=== PATIENT | male | born 1980 ===

== ENCOUNTER 2017-06-09 07:42 | Inpatient (IN) | payer OTHER ==
[2017-06-09 08:09] VITALS: BMI 26.3
[2017-06-09 08:39] LABS: BASO # 0.1 K/uL (0.0-0.2); BASO % 0.9 % (0.0-2.0); EOS # 0.3 K/uL (0.0-0.7); EOS % 4.2 % (0.0-4.0); HEMOGLOBIN 15.7 g/dL (12.0-18.0); LYMPH # 1.4 K/uL (1.0-4.3); LYMPH % 23.1 % (20.0-40.0); MEAN CELL VOLUME 89.6 fL (80.0-94.0); MEAN CORPUSCULAR HEMOGLOBIN 31.5 pg (27.0-31.0); MEAN CORPUSCULAR HGB CONC 35.2 g/dL (33.0-37.0); MEAN PLATELET VOLUME 7.4 fL (7.2-11.7); MONO # 0.6 K/uL (0.0-0.8); MONO % 9.1 % (0.0-10.0); NEUT # 3.8 K/uL (1.8-7.0); NEUT % 62.7 % (50.0-75.0); RBC 4.99 Mil/uL (4.40-5.90); RED CELL DISTRIBUTION WIDTH 13.3 % (11.5-14.5); WHITE BLOOD COUNT 6.1 K/uL (4.8-10.8)
[2017-06-09 08:44] LABS: URINE BILIRUBIN NEGATIVE (NEGATIVE); URINE BLOOD NEGATIVE (NEGATIVE); URINE CLARITY Clear (Clear); URINE COLOR Straw (YELLOW); URINE GLUCOSE (UA) NORMAL (Normal); URINE LEUKOCYTE ESTERASE NEG Leu/uL (Negative); URINE NITRATE NEGATIVE (NEGATIVE); URINE PROTEIN NEGATIVE (NEGATIVE); URINE UROBILINOGEN NORMAL mg/dL (0.2-1.0)
[2017-06-09 08:53] LABS: ALB/GLOB RATIO 1.3 (1.0-2.1); ALBUMIN 4.1 g/dL (3.5-5.0); ALT/SGPT 23 U/L (21-72); AST/SGOT 19 U/L (17-59); BLOOD UREA NITROGEN 13 mg/dL (9-20); CALCIUM 9.8 mg/dl (8.6-10.4); GFR AFRICAN-AMERICAN > 60; GFR NON-AFRICAN AMERICAN > 60
[2017-06-09 08:59] LABS: BARBITURATES, UR NEGATIVE (NEGATIVE); OPIATES, UR NEGATIVE (NEGATIVE); PHENCYCLIDINE, UR NEGATIVE (NEGATIVE)
[2017-06-09 09:25] LABS: BENZODIAZEPINES, UR POSITIVE (NEGATIVE)
--- NOTE | 2017-06-09 09:41 | C.PDOC ---
History Of Present Illness 37 year old male presents to the emergency department with a complaint of having anxiety after having problems at home. Patient has a history of anxiety and takes Xanax and Bupropion. Reports he was able to sleep but as soon as he woke up he felt anxious. Denies suicidal/homicidal ideation and visual or auditory hallucinations. Time Seen by Provider: 06/09/17 08:00 Chief Complaint (Nursing): Anxiety History Per: Patient History/Exam Limitations: no limitations Past Medical History Reviewed: Historical Data, Nursing Documentation, Vital Signs Vital Signs: Last Vital Signs Temp 98.2 F 06/09/17 10:10 Pulse 68 06/09/17 10:10 Resp 20 06/09/17 10:10 BP 122/76 06/09/17 10:10 Pulse Ox 100 06/09/17 10:52 - Medical History PMH: Anxiety Denies: Diabetes, Hepatitis, HIV, HTN, Seizures, Sexually Transmitted Disease Family History: States: No Known Family Hx - Social History Hx Alcohol Use: No Hx Substance Use: No - Immunization History Hx Tetanus Toxoid Vaccination: No Hx Influenza Vaccination: No Hx Pneumococcal Vaccination: No Review Of Systems Except As Marked, All Systems Reviewed And Found Negative. (As per HPI, otherwise negative) Psych: Positive for: Anxiety. Negative for: Suicidal ideation (homicidal ideation), Other (Auditory or visual hallucinations) Physical Exam - Physical Exam Appears: Well, Non-toxic, Toxic Skin: Normal Color, Warm Head: Normacephalic Nose: Normal Tongue: Normal Appearing Lips: Normal Appearing Teeth: Normal Dentition Gingiva: Normal Appearing Throat: Normal Neck: Normal ROM Lymphatic: Normal Exam Cardiovascular: Rhythm Regular, No Murmur Respiratory: Normal Breath Sounds, No Decreased Breath Sounds, No Accessory Muscle Use Gastrointestinal/Abdominal: Normal Exam, Soft, No Tenderness Extremity: Normal ROM, No Pedal Edema Neurological/Psych: Oriented x3 Gait: Steady ED Course And Treatment - Laboratory Results Result Diagrams: 06/09/17 08:30 06/09/17 08:30 O2 Sat by Pulse Oximetry: 100 (RA) Pulse Ox Interpretation: Normal Medical Decision Making Medical Decision Making: Time: 822 --Alohol Serum --CMP --Drug Screen, Urine --CBC w/ diff --Urinalysis --Crisis evaluation as ordered Time: 919 --Patient was seen and medically cleared for crisis evaluation/admission. Time: 938 --Admit to hospital routine: as inpatient in psychiatry for anxiety under the care of Dr. Amara Browning MD Disposition - Disposition Disposition: HOSPITALIZED Disposition Time: :40 Condition: STABLE - Clinical Impression Clinical Impression: Anxiety - Scribe Statement edwin terri Decision To Admit - Pt Status Changed To: Hospital Disposition Of: Inpatient - Admit Certification Admit to Inpatient:: After my assessment, the patient will require hospitalization for at least two midnights. This is because of the severity of symptoms shown, intensity of services needed, and/or the medical risk in this patient being treated as an outpatient. - InPatient: Physician Admission Certification: I certify that this patient requires 2 or more midnights of care for the following reason:: pt will need more than 2 days of hospitalization - . Bed Request Type: Psychiatry Patient Diagnosis: Anxiety
--- NOTE | 2017-06-09 10:49 | PCM.BM ---
<Kelle Martinez - Last Filed: 06/09/17 10:49> Treatment Plan Problems - Problems identified on initial assessmt Anxiety Date Initiated: 06/09/17 Time Initiated: 10:49 Assessment reference: NA Status: Active Treatment assets and liabiliti Patient Assests: adapts well, cooperative Patient Liabilities: substance abuse - Milieu Protocol Maintain good personal hygiene: every shift Encourage regular showers, every shift Remind patient to perform daily oral care, every shift Assist patient to perform ADL's Maintain personal safety: every shift Educate patient to report safety concerns to staff, every shift Monitor environment for contraband/sharps Medication safety: Monitor for expected outcome, potential side effects: every shift, Assess barriers to learning: every shift, Assess readiness for medication education: every shift <Aster Garcia - Last Filed: 06/11/17 10:43> Family Contact Family involvement: Family/SO is involved Family contact: Patient declines to allow family contact at present - Goals for Treatment Patient goals for treatment: "I need help with my anxiety." Discharge/Continuing Care - Education Needs Education Needs: Patient Medication, Patient Coping Skills - Discharge Discharge Criteria: Tolerates medication w/o severe side effects, Reduction of target symptoms Discharge to:: Home, With Family - Treatment Team Participation Discussed with Family/SO: No Was Patient/Family/SO present at Treatment Team Meeting: Yes <Amara Browning - Last Filed: 06/11/17 10:44> - Diagnosis (1) Bipolar disorder Status: Acute Interventions: 06/11/17 10:44 * Assess/adjust medications daily and /or as needed * See patient on an individual basis 7x/week to assess level of manic behaviors and stability * Discuss risks, benefits, side effects and alternatives of medications *
--- NOTE | 2017-06-09 23:48 | PCM.PSYCH ---
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 Patient denies any past history of any inpatient psychiatric hospitalization and denies any history of follow-up with any psychiatrist. Patient reports that since few weeks he is feeling very high anxiety. He also reports panic attacks, with heavy breathing, palpitations and gastric symptoms. He reports that he believes that his head is running faster. He reports racing of thoughts, flight of ideas and poor concentration. 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 He also reports poor sleep. However he denies any suicidal ideation or homicidal ideation. He denies any auditory or visual hallucinations or any psychotic symptoms. He denies any drugs or any substance abuse. PMH: None reported Current Medications: Active Medications Generic Name Dose Route Start Last Admin Trade Name Freq PRN Reason Stop Dose Admin Hydroxyzine HCl 25 mg 06/09/17 14:04 06/09/17 17:45 Atarax PO 25 mg Q4 PRN Administration Agitation Lorazepam 1 mg 06/09/17 18:06 Ativan PO Q6 PRN severe anxiety Trazodone HCl 50 mg 06/09/17 18:06 Desyrel PO HS PRN Insomnia Past Psychiatric History - Past Psychiatric History Previous Treatment History: None Pertinent Medical Hx (Current Medical&Sleep Prob, Allergies): Allergies Allergy/AdvReac Type Severity Reaction Status Date / Time No Known Allergies Allergy Verified 06/09/17 07:47 Alprazolam 0.5 mg PO BID 06/09/17 buPROPion [Bupropion HCl] 100 mg PO BID 06/09/17 Review of Systems - Review of Systems All systems: reviewed and no additional remarkable complaints except - Psychiatric Psychiatric: Anxiety, Irritability. absent: Suicidal Ideation Mental Status Examination - Personal Presentation Personal Presentation: Looks stated age - Affect Affect: Constricted - Motor Activity Motor Activity: Calm - Reliability in Providing Information Reliability in Providing Information: Fair - Speech Speech: Organized - Mood Mood: Anxious - Formal Thought Process Formal Thought Process: Flight of ideas, Circumstantial - Obsessions/Compulsions Obsessions: No Compulsions: No - Cognitive Functions Orientation: Person, Place, Situation, Time Sensorium: Alert Attention/Concentration: Attentive Abstract Thinking: [place] Estimate of Intelligence: Below average Judgement: Imparied, as evidence by: Poor judgement, Intact, as evidence by: Insight regarding need for hospitalization - Risk Risk: Diminished functioning - Strength & Assets Inventory Strength & Assets Inventory: Family support DSM 5 DX - DSM 5 DSM 5 Diagnosis: Bipolar disorder manic severe without psychotic features Generalized anxiety disorder - Recommended/Plan of Treatment Treatment Recommendations and Plan of Treatment: Bipolar disorder manic severe without psychotic features Generalized anxiety disorder CBT Psychoeducation Supportive therapy, group therapy, individual therapy Wellbutrin 100 mg by mouth daily Trazodone 50 mg by mouth daily at bedtime Hydroxyzine 25 mg by mouth every 6 hours when necessary
[2017-06-10 05:54] VITALS: O2SAT 99
--- NOTE | 2017-06-11 10:18 | PCM.PYCHPN ---
Psychiatric Progress Note - Psychiatric Progress Note Patient seen today, length of contact: 15 min Patient Chief Complaint: I'm still feeling anxious.' Problems Identified/Issues Discussed: Patient seen and evaluated, chart reviewed and discussed with the nurse. Patient reports irritability and agitation. He remained isolated and withdrawn. He still reports racing thoughts and flight of ideas. However he reports that he was able to sleep last night. He denies any auditory or visual hallucinations. He is taking medications and denies any side effects. Symptoms are improving but she needs more time for stabilization. Supportive therapy and psychoeducation were given Medication Change: Yes (Start Neurontin, DC Wellbutrin) Medical Record Reviewed: Yes Mental Status Examination - Cognitive Function Orientation: Person, Place, Situation, Time Memory: Intact Attention: WNL Concentration: Poor Association: WNL Fund of Knowledge: Poor - Mood Mood: Anxious - Affect Affect: Constricted - Speech Speech: Appropriate - Formal Thought Process Formal Thought Process: Flight of ideas - Suicidal Ideation Suicidal Ideation: No - Homicidal Ideation Homicidal Ideation: No Goal/Treatment Plan - Goal/Treatment Plan Need for Continued Stay: Severe depression anxiety, Severe functional impairment Progress Toward Problem(s) and Goals/Treatment Plan: Bipolar disorder manic severe without psychotic features Generalized anxiety disorder CBT Psychoeducation Supportive therapy, group therapy, individual therapy d/c Wellbutrin 100 mg by mouth daily Neurontin 100 mg by mouth 3 times a day Trazodone 50 mg by mouth daily at bedtime Hydroxyzine 25 mg by mouth every 6 hours when necessary - Smoking Cessation Smoking Cessation Initiated: No
--- NOTE | 2017-06-11 10:43 | PCM.PYCHPN ---
Psychiatric Progress Note - Psychiatric Progress Note Patient seen today, length of contact: 15 min Patient Chief Complaint: My head is still pacing.' Problems Identified/Issues Discussed: Patient seen and evaluated, chart reviewed and discussed with the nurse. Patient still reports racing thoughts and flight of ideas. He reports some improvement in the irritability and agitation. He remained isolated and withdrawn. He also reports improvement in his sleep. He denies any auditory or visual hallucinations. He also denies any suicidal ideation or any homicidal ideation. He is taking medications and denies any side effects. Symptoms are improving but she needs more time for stabilization. Supportive therapy and psychoeducation were given Medication Change: Yes (Start Depakote) Medical Record Reviewed: Yes Mental Status Examination - Cognitive Function Orientation: Person, Place, Situation, Time Memory: Intact Attention: WNL Concentration: Poor Association: WNL Fund of Knowledge: Poor - Mood Mood: Anxious - Affect Affect: Constricted - Speech Speech: Appropriate, Soft - Formal Thought Process Formal Thought Process: Flight of ideas - Suicidal Ideation Suicidal Ideation: No - Homicidal Ideation Homicidal Ideation: No Goal/Treatment Plan - Goal/Treatment Plan Need for Continued Stay: Severe depression anxiety, Severe functional impairment Progress Toward Problem(s) and Goals/Treatment Plan: Bipolar disorder manic severe without psychotic features Generalized anxiety disorder CBT Psychoeducation Supportive therapy, group therapy, individual therapy Depakote 250 mg by mouth twice a day Neurontin 100 mg by mouth 3 times a day Trazodone 50 mg by mouth daily at bedtime Hydroxyzine 25 mg by mouth every 6 hours when necessary
[2017-06-11] MEDS: Divalproex 250 mg DR Tab PO SCH ×2 (11:05→17:08)
[2017-06-12 09:41] VITALS: BP 116/76; PULSE 79; RESP 20; TEMP 97.8
[2017-06-12] MEDS: Divalproex 250 mg DR Tab PO SCH (09:43)
--- NOTE | 2017-06-12 10:41 | PCM.PYCHDC ---
Mental Status Examination - Mental Status Examination Orientation: Person, Place, Situation, Time Memory: Intact Mood: Neutral Affect: Constricted Speech: Soft Attention: WNL Concentration: WNL Association: WNL Fund of Knowledge: WNL Formal Thought Process: No Impairment Description of patient's judgement and insight: good, fair Psychotic Thoughts and Behaviors: denies any AVH Suicidal Ideation: No Current Homicidal Ideation?: No Discharge Summary - Discharge Note Consultations:: List each consultation separately and include: 1. Reason for request. 2. Findings. 3. Follow-up Summary of Hospital Course include:: 1. Description of specific treatment plan utilized for patients during their course of treatmen. 2. Summarize the time- course for resolution of acute symptoms and/or regressed behaviors. 3. Describe issues identified and worked on during hospitalization. 4. Describe medication utilized. 5. Describe medical problems identified and treated. 6. 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 Patient denies any past history of any inpatient psychiatric hospitalization and denies any history of follow-up with any psychiatrist. Patient reports that since few weeks he is feeling very high anxiety. He also reports panic attacks, with heavy breathing, palpitations and gastric symptoms. He reports that he believes that his head is running faster. He reports racing of thoughts, flight of ideas and poor concentration. 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 He also reports poor sleep. However he denies any suicidal ideation or homicidal ideation. He denies any auditory or visual hallucinations or any psychotic symptoms. He denies any drugs or any substance abuse. PMH: None reported - Diagnosis (1) Bipolar disorder Current Visit: Yes Status: Acute - Final Diagnosis (DSM 5) Condition upon Discharge: STABLE Disposition: HOME/ ROUTINE Follow-up Treatment Plan: Bipolar disorder manic severe without psychotic features Generalized anxiety disorder CBT Psychoeducation Supportive therapy, group therapy, individual therapy Depakote 250 mg by mouth twice a day Neurontin 100 mg by mouth 3 times a day Trazodone 50 mg by mouth daily at bedtime Hydroxyzine 25 mg by mouth every 6 hours when necessary Prescriptions/Medication Reconciliation: Divalproex [Depakote DR] 250 mg PO BID #60 tcp Gabapentin [Neurontin] 100 mg PO BID #60 cap traZODone [Desyrel] 50 mg PO HS PRN #30 tab PRN Reason: Insomnia
== END 2017-06-12 13:00 | disposition home or self-care (01) | DRG 430 ==
LOC: C.ER 07:42 → C.5E 09:39
PROVIDERS: ADMIT Psychiatry & Neurology Psychiatry; ATTEND Psychiatry & Neurology Psychiatry
PROC: GZ3ZZZZ Medication Management (ICD-10-PCS; principal; 2017-06-09)
PROC: GZHZZZZ Group Psychotherapy (ICD-10-PCS; 2017-06-09)
PROC: GZ56ZZZ Individual Psychotherapy, Supportive (ICD-10-PCS; 2017-06-09)
DX: F31.13 Bipolar disorder, current episode manic without psychotic features, severe (principal); F17.210 Nicotine dependence, cigarettes, uncomplicated; F41.0 Panic disorder [episodic paroxysmal anxiety]; F41.1 Generalized anxiety disorder; Z79.899 Other long term (current) drug therapy

== ENCOUNTER 2017-10-27 15:24 | Emergency (ER) | payer SELFPAY ==
[2017-10-27 15:33] VITALS: BMI 25.3
[2017-10-27 15:36] VITALS: BP 135/82; PULSE 84; RESP 16; TEMP 98.4; O2SAT 100
--- NOTE | 2017-10-27 17:46 | C.PDOC ---
History Of Present Illness 37 year old male patient with hx of bipolar disorder comes in for evaluation of intermittent headache that gradually developed for a few days ago. Patient states this headache has been around for years. Patient describes headache as "squeezing from sides", associated with nausea. Patient denies fever, recent illness, worst headache of his life, dizziness, vertigo, visual changes, focal deficits, neck pain, drooling, CP, SOB, dyspnea, palpitation, abd. pain, N/V, back pain. Ambulate to Ed for evaluation, appears comfortable, not in any apparent distress. Time Seen by Provider: 10/27/17 15:43 Chief Complaint (Nursing): Headache History Per: Patient History/Exam Limitations: no limitations Onset/Duration Of Symptoms: Days Current Symptoms Are (Timing): Still Present Quality: Other (tension) Preceeding Symptoms: denies: Visual Disturbances Associated Symptoms: Nausea. denies: Photophobia, Extremity Weakness Past Medical History Reviewed: Historical Data, Nursing Documentation, Vital Signs Vital Signs: Last Vital Signs Temp 98.4 F 10/27/17 15:33 Pulse 84 10/27/17 15:33 Resp 16 10/27/17 15:33 BP 135/82 10/27/17 15:33 Pulse Ox 100 10/27/17 17:51 - Medical History PMH: Anxiety, Bipolar Disorder - [facility] Procedures GROUP PSYCHOTHERAPY (06/09/17) INDIVIDUAL PSYCHOTHERAPY, SUPPORTIVE (06/09/17) MEDICATION MANAGEMENT (06/09/17) Family History: States: No Known Family Hx - Social History Hx Alcohol Use: No Hx Substance Use: No - Immunization History Hx Tetanus Toxoid Vaccination: No Hx Influenza Vaccination: No Hx Pneumococcal Vaccination: No Review Of Systems Except As Marked, All Systems Reviewed And Found Negative. Constitutional: Negative for: Fever, Other (recent illness, worst headache of his life) Eyes: Negative for: Other (visual deficit) Gastrointestinal: Positive for: Nausea Neurological: Negative for: Dizziness, Other (focal deficit) Physical Exam - Physical Exam Appears: Well, Non-toxic, No Acute Distress Skin: Normal Color, Warm, Dry, No Rash, No Ecchymosis Head: Atraumatic, Normacephalic Eye(s): bilateral: PERRL Ear(s): Bilateral: Normal Nose: No Flaring, No Discharge, No Deformity, No Tenderness Oral Mucosa: Moist Tongue: Normal Appearing Lips: Normal Appearing Throat: No Erythema Neck: Trachea Midline, No Midline Cervical Tenderness, No Paracervical Tenderness, No Step Off Deformity, Supple Chest: Symmetrical, No Deformity, No Tenderness Cardiovascular: Rhythm Regular, No Friction Rub, No Murmur, No JVD, Other ((-) carotid bruits B/L) Respiratory: No Decreased Breath Sounds, No Accessory Muscle Use, No Stridor, No Wheezing Gastrointestinal/Abdominal: Soft, No Tenderness, No Distention, No Guarding, No Rebound Back: No CVA Tenderness Extremity: Normal ROM (x4), No Tenderness, No Pedal Edema, No Deformity Neurological/Psych: Oriented x3, Normal Speech, Normal Cognition, Cerebellar Signs, Normal Motor, Normal Sensation, Normal Reflexes ED Course And Treatment O2 Sat by Pulse Oximetry: 100 (RA) Pulse Ox Interpretation: Normal - CT Scan/US CT head Other Rad Studies (CT/US): Radiology Report Reviewed CT/US Interpretation: Creator : Efrain Verma MD. Dictator : Efrain Verma MD. Project Executive : Antique Clock Repairer : Efrain Verma MD. Approver2 : Report Date : 10/27/2017 17:51:05. My Comment : . This report is currently processing and HAS NOT BEEN OFFICIALLY SIGNED BY THE PHYSICIAN - ESTIMATED TIME OF APPROVAL IS 10/27/2017 17:57. Date of service: 10/27/2017. PROCEDURE: CT HEAD WITHOUT CONTRAST. HISTORY: headache, N/V. COMPARISON: None available. TECHNIQUE: Axial computed tomography images were obtained through the head/brain without intravenous contrast. Radiation dose: Total exam DLP = 1280.15 mGy-cm. This CT exam was performed using one or more of the following dose reduction techniques: Automated exposure control, adjustment of the mA and/or kV according to patient size, and/or use of iterative reconstruction technique. FINDINGS: HEMORRHAGE: No intracranial hemorrhage. BRAIN: Normal san-white matter differentiation and density are appreciated throughout the cerebrum and cerebellum with the brainstem appearing unremarkable as well. There is no mass effect. There is no suspicious extra- axial fluid collection and the midline brain anatomy appears diffusely unremarkable. VENTRICLES: Unremarkable. No hydrocephalus. CALVARIUM: Unremarkable. PARANASAL SINUSES: Right greater than left maxillary sinusitis. MASTOID AIR CELLS: Unremarkable as visualized. No inflammatory changes. OTHER FINDINGS: None. IMPRESSION: Unremarkable noncontrast head CT. Incidental bilateral maxillary sinus disease right greater than left. Progress Note: On re-eval, pt is afebrile, hemodynamicaly stable. Non-toxic. AMbulatory in ED with stable gait. PulseOx 100% RA. ENT: no acute findings. neck: SUpple, (-) meningeal sign, (-) JVD, (-) carotid bruits B/L. Lungs: CTA B /L, BS equal B/L. Abd: benign, (-) guarding, (-) rebound. Neurologicaly intact. CT head review and appears normal. Pt has clinical findings c/w headache, nos . Pt advised and ref. to F/u with PMD, Neurology and Psych for medication review. return to ED if any worsening or new changes. Disposition Counseled Patient/Family Regarding: Studies Performed, Diagnosis, Need For Followup, Rx Given - Disposition Referrals: Abdulaziz Shin MD [Staff Provider] - Dre Rodriguez MD [Staff Provider] - Disposition: HOME/ ROUTINE Disposition Time: 17:51 Condition: STABLE Additional Instructions: take medication as prescribed Follow up with PMD, Neurology in 2-3 days for re-evaluation. return if any new changes. Prescriptions: Acetaminophen/Butalbital/Caf [Fioricet] 1 tab PO BID #10 tab Instructions: Headache, Adult (DC) Forms: [employer] (Lithuanian) Print Language: ROMANSH - Clinical Impression Clinical Impression: Headache
--- NOTE | 2017-10-27 17:52 | CT ---
Date of service: 10/27/2017 PROCEDURE: CT HEAD WITHOUT CONTRAST. HISTORY: headache, N/V COMPARISON: None available. TECHNIQUE: Axial computed tomography images were obtained through the head/brain without intravenous contrast. Radiation dose: Total exam DLP = 1280.15 mGy-cm. This CT exam was performed using one or more of the following dose reduction techniques: Automated exposure control, adjustment of the mA and/or kV according to patient size, and/or use of iterative reconstruction technique. FINDINGS: HEMORRHAGE: No intracranial hemorrhage. BRAIN: Normal san-white matter differentiation and density are appreciated throughout the cerebrum and cerebellum with the brainstem appearing unremarkable as well. There is no mass effect. There is no suspicious extra-axial fluid collection and the midline brain anatomy appears diffusely unremarkable. VENTRICLES: Unremarkable. No hydrocephalus. CALVARIUM: Unremarkable. PARANASAL SINUSES: Right greater than left maxillary sinusitis. MASTOID AIR CELLS: Unremarkable as visualized. No inflammatory changes. OTHER FINDINGS: None. IMPRESSION: Unremarkable noncontrast head CT. Incidental bilateral maxillary sinus disease right greater than left.
== END 2017-10-27 18:01 | disposition home or self-care (01) ==
LOC: C.ER 15:24
DX: R51 Headache (principal)

== ENCOUNTER 2018-06-04 08:29 | Emergency (ER) | payer SELFPAY ==
[2018-06-04 08:30] VITALS: BMI 25.3
[2018-06-04] MEDS ORDERED: Sodium Chloride 0.9% 1,000 ML IV ONE (09:23)
[2018-06-04 09:45] LABS: BASO % 0.9 % (0.0-2.0); EOS # 0.2 K/uL (0.0-0.7); EOS % 3.9 % (0.0-4.0); HEMOGLOBIN 16.3 g/dL (12.0-18.0); LYMPH # 1.1 K/uL (1.0-4.3); LYMPH % 24.5 % (20.0-40.0); MEAN CORPUSCULAR HEMOGLOBIN 31.3 pg (27.0-31.0); MEAN CORPUSCULAR HGB CONC 33.8 g/dL (33.0-37.0); MEAN PLATELET VOLUME 7.5 fL (7.2-11.7); MONO # 0.6 K/uL (0.0-0.8); MONO % 12.2 % (0.0-10.0); NEUT # 2.7 K/uL (1.8-7.0); NEUT % 58.5 % (50.0-75.0); NRBC % 0.1 % (0.0-2.0); RBC 5.2 Mil/uL (4.40-5.90); RED CELL DISTRIBUTION WIDTH 13.3 % (11.5-14.5); WHITE BLOOD COUNT 4.6 K/uL (4.8-10.8)
[2018-06-04 09:46] LABS: MEAN CELL VOLUME 92.5 fL (80.0-94.0)
[2018-06-04 09:57] LABS: ALB/GLOB RATIO 2.2 (1.0-2.1); ALBUMIN 4.5 g/dL (3.5-5.0); BLOOD UREA NITROGEN 18 mg/dL (9-20); CALCIUM 8.9 mg/dl (8.6-10.4); GFR NON-AFRICAN AMERICAN > 60; LIPASE 49 U/L (23-300)
[2018-06-04 10:05] LABS: ALT/SGPT 22 U/L (21-72); AST/SGOT 25 U/L (17-59)
--- NOTE | 2018-06-04 10:29 | C.PDOC ---
History Of Present Illness 37 y/o male presents to the ER complaining of persistent epigastric and LUQ abdominal pain which has been present for "long time." Patient describes the pain as "heat and burning." Patient states that he has history of being positiv e for H.pylori 10 months ago. Patient notes that he was diagnosed and treated by his PMD. He completed the course of treatment however he did not follow up with GI. He states that he had 2 episodes of rectal bleeding with bright red blood. The 1st episode was 4 days ago and the 2nd episode was today.Denies having fever,chills,cough, nausea, vomiting, diarrhea, and dysuria. Time Seen by Provider: 06/04/18 08:35 Chief Complaint (Nursing): Abdominal Pain History Per: Patient History/Exam Limitations: no limitations Onset/Duration Of Symptoms: Days Current Symptoms Are (Timing): Still Present Severity: Moderate Past Medical History Reviewed: Historical Data, Nursing Documentation, Vital Signs Vital Signs: Last Vital Signs Temp 98.3 F 06/04/18 08:36 Pulse 82 06/04/18 08:36 Resp 20 06/04/18 08:36 BP 120/81 06/04/18 08:36 Pulse Ox 100 06/04/18 08:36 - Medical History PMH: Anxiety, Bipolar Disorder Denies: Asthma, COPD, HIV, HTN, Chronic Kidney Disease, Seizures, Sexually Transmitted Disease Other Surgeries: Hx of surgeries - [facility] GROUP PSYCHOTHERAPY (06/09/17) INDIVIDUAL PSYCHOTHERAPY, SUPPORTIVE (06/09/17) MEDICATION MANAGEMENT (06/09/17) Family History: States: No Known Family Hx - Social History Hx Alcohol Use: Yes Hx Substance Use: No - Immunization History Hx Tetanus Toxoid Vaccination: No Hx Influenza Vaccination: No Hx Pneumococcal Vaccination: No Review Of Systems Except As Marked, All Systems Reviewed And Found Negative. Constitutional: Negative for: Fever, Chills Cardiovascular: Negative for: Chest Pain Respiratory: Negative for: Cough, Shortness of Breath Gastrointestinal: Positive for: Abdominal Pain, Other (rectal bleeding). Negative for: Nausea, Vomiting Genitourinary: Negative for: Dysuria Physical Exam - Physical Exam Appears: Non-toxic, No Acute Distress Skin: Normal Color, Warm, Dry Head: Atraumatic, Normacephalic Eye(s): bilateral: Normal Inspection Nose: Normal Oral Mucosa: Moist Neck: Supple Chest: Symmetrical Cardiovascular: Rhythm Regular Respiratory: Normal Breath Sounds, No Rales, No Rhonchi, No Wheezing Gastrointestinal/Abdominal: Soft, Tenderness (epigastric and LUQ tenderness), No Guarding, No Rebound, Other (negative McBurney's, negative Dawson's) Rectal: Rectal Tone (normal rectal tone), Heme Positive, No Hemorrhoids (external) Back: No CVA Tenderness Neurological/Psych: Oriented x3, Normal Speech ED Course And Treatment - Laboratory Results Result Diagrams: 06/04/18 09:41 06/04/18 09:41 Lab Results: Total Bilirubin 0.7 mg/dL (0.2-1.3) 06/04/18 09:41 AST 25 U/L (17-59) 06/04/18 09:41 ALT 22 U/L (21-72) 06/04/18 09:41 Alkaline Phosphatase 60 U/L (38-126) 06/04/18 09:41 Total Protein 6.5 g/dL (6.3-8.3) 06/04/18 09:41 Albumin 4.5 g/dL (3.5-5.0) 06/04/18 09:41 Globulin 2.0 gm/dL (2.2-3.9) L 06/04/18 09:41 Albumin/Globulin Ratio 2.2 (1.0-2.1) H 06/04/18 09:41 Lipase 49 U/L (23-300) 06/04/18 09:41 O2 Sat by Pulse Oximetry: 100 (RA) Pulse Ox Interpretation: Normal Progress Note: Labs ordered. Patient treated with Protonix IV and IV Fluids. Disposition - Disposition Referrals: Abdulaziz Shin MD [Staff Provider] - Chris Garcia MD [Staff Provider] - Disposition: HOME/ ROUTINE Condition: STABLE Additional Instructions: FOLLOW UP WITH YOUR DOCTOR IN 1-2 DAYS FOLLOW UP WITH [facility] WITHIN 1 WEEK USE MEDICATION DAILY RETURN TO EMERGENCY ROOM IF SYMPTOMS WORSEN SEGUIR CON GARCIA MDICO EN 1-2 STAFFORD SEGUIRSE CON EL GASTROENTERLOGO DENTRO DE 1 SEMANA UTILIZAR MEDICAMENTOS DIARIAMENTE VUELVA A LA SANJUANITA DE EMERGENCIA SI LOS SNTOMAS ESTN PEOR Prescriptions: Pantoprazole [Protonix EC Tab] 20 mg PO DAILY #30 ect Instructions: Dyspepsia (DC) Forms: [employer] (Chilean) Print Language: DIVEHI - Clinical Impression Clinical Impression: Epigastric abdominal pain, Guaiac + stool - Scribe Statement The provider has reviewed the documentation as recorded by the Pete Michele Provider Attestation: All medical record entries made by the Pete were at my direction and personally dictated by me. I have reviewed the chart and agree that the record accurately reflects my personal performance of the history, physical exam, medical decision making, and the department course for this patient. I have also personally directed, reviewed, and agree with the discharge instructions and disposition.
--- NOTE | 2018-06-04 10:31 | C.PDOC ---
Time Seen by Provider: 06/04/18 08:35 Chief Complaint (Nursing): Abdominal Pain Past Medical History Vital Signs: Last Vital Signs Temp 98.3 F 06/04/18 08:36 Pulse 82 06/04/18 08:36 Resp 20 06/04/18 08:36 BP 120/81 06/04/18 08:36 Pulse Ox 100 06/04/18 08:36 - Medical History PMH: Anxiety, Bipolar Disorder Denies: Asthma, COPD, HIV, HTN, Chronic Kidney Disease, Seizures, Sexually Transmitted Disease - [facility] GROUP PSYCHOTHERAPY (06/09/17) INDIVIDUAL PSYCHOTHERAPY, SUPPORTIVE (06/09/17) MEDICATION MANAGEMENT (06/09/17) - Social History Hx Alcohol Use: Yes Hx Substance Use: No - Immunization History Hx Tetanus Toxoid Vaccination: No Hx Influenza Vaccination: No Hx Pneumococcal Vaccination: No ED Course And Treatment - Laboratory Results Result Diagrams: 06/04/18 09:41 06/04/18 09:41 Lab Results: Total Bilirubin 0.7 mg/dL (0.2-1.3) 06/04/18 09:41 AST 25 U/L (17-59) 06/04/18 09:41 ALT 22 U/L (21-72) 06/04/18 09:41 Alkaline Phosphatase 60 U/L (38-126) 06/04/18 09:41 Total Protein 6.5 g/dL (6.3-8.3) 06/04/18 09:41 Albumin 4.5 g/dL (3.5-5.0) 06/04/18 09:41 Globulin 2.0 gm/dL (2.2-3.9) L 06/04/18 09:41 Albumin/Globulin Ratio 2.2 (1.0-2.1) H 06/04/18 09:41 Lipase 49 U/L (23-300) 06/04/18 09:41 O2 Sat by Pulse Oximetry: 100 Disposition Counseled Patient/Family Regarding: Studies Performed, Diagnosis, Need For Followup, Rx Given - Disposition Referrals: Abdulaziz Shin MD [Staff Provider] - Chris Garcia MD [Staff Provider] - Disposition: HOME/ ROUTINE Disposition Time: 10:25 Condition: STABLE Additional Instructions: FOLLOW UP WITH YOUR DOCTOR IN 1-2 DAYS FOLLOW UP WITH CONTENT WRITER WITHIN 1 WEEK USE MEDICATION DAILY RETURN TO EMERGENCY ROOM IF SYMPTOMS WORSEN SEGUIR CON GARCIA MDICO EN 1-2 STAFFORD SEGUIRSE CON EL GASTROENTERLOGO DENTRO DE 1 SEMANA UTILIZAR MEDICAMENTOS DIARIAMENTE VUELVA A LA SANJUANITA DE EMERGENCIA SI LOS SNTOMAS ESTN PEOR Prescriptions: Pantoprazole [Protonix EC Tab] 20 mg PO DAILY #30 ect Instructions: Dyspepsia (DC) Print Language: ALGERIAN - Clinical Impression Clinical Impression: Epigastric abdominal pain, Guaiac + stool
[2018-06-04 10:47] VITALS: BP 112/64; PULSE 73; RESP 12; TEMP 98
[2018-06-04 10:49] VITALS: O2SAT 100
== END 2018-06-04 11:06 | disposition home or self-care (01) ==
LOC: C.ER 08:29
DX: R10.13 Epigastric pain (principal); R19.5 Other fecal abnormalities
CPT/HCPCS: 80053; 83690; 85025; 96361; 96374; 99284; C9113; G0328; J7030